=== PATIENT | male | born 1960 | race Caucasian/White ===

== ENCOUNTER 2022-11-26 20:03 | Emergency (ER) | payer BC ==
[~2022-11-26] VITALS: Ht 177.8 cm; Wt 94.8 kg
[2022-11-26] MEDS ORDERED: PEPCID20 MG PO (21:30)
== END 2022-11-26 21:47 | disposition home or self-care (01) ==
LOC: FSED 20:26
DX: K62.5 Hemorrhage of anus and rectum (principal); E78.5 Hyperlipidemia, unspecified; F41.9 Anxiety disorder, unspecified
CPT/HCPCS: 99282